=== PATIENT | male | born 1995 | race Caucasian/White ===

== ENCOUNTER 2021-02-15 05:34 | Emergency (ER) | payer OTHER ==
[~2021-02-15] VITALS: Ht 182.9 cm; Wt 113.4 kg
--- NOTE | ~2021-02-15 | EMS ---
[address] [address] EMS Patient Care Report Name: ANANDA WADE [id number]: 02/15/21 Attend Phys: Discharge: Date of : [birth year] Report #: [id number] THIS REPORT FOR: //name// Report Transmitted: 02/15/2021 07:03 EMS Care Summary [facility] [place] Incident [id number] @ 02/15/2021 04:55 [address]ident [address] [place] [id number] Patient Ananda Wade Male, 25 Years 1995 Patient Address [address] [place] [address] Patient Allergies No known allergies, Chief Complaint Ingestion Disposition Transported No Lights/[place] Dispatch Reason Overdose/Poisoning/Ingestion Transported To [facility] Narrative [facility] dispatched to the above location for overdose. Arrived on scene of a gas station. Patient is being escorted out of the store by [employer]. Patient is alert, confused and anxious. Patient is unable to state when or what he took. He repeatedly states he will not do it again and wants to see his sisters. After [employer] searched patient, retrieving a pocket knife, patient was walked to ambulance. Patient is extremely paranoid, hyperactive and it is difficult to redirect. He was unable to answer all A&O questions. He states repeatedly he wants help. He required multiple attempts to have him sit on cot and be secured via safety straps plus side rails. Initial vitals obtained. 4-lead obtained and [place] [address] [place] [address] EMS Patient Care Report Name: ANANDA WADE Room: [facility]#: [id number] Admission: 02/15/21 Attend Phys: Discharge: Date of : 89 Report #: [id number] 12-lead attempted. Due to patient's excessive movement, unable to obtain a clear tracing. Unable to obtain IV access or BGL due to patients inability to cooperate. During transport, patient showed signs of diaphoresis. He states he is scared, seeing and hearing things now. Patient was asked about multiple different drug possibilities and he continues to state he does not know what he took. He is also unable to state how he took the drugs. Unable to maintain monitoring equipment of patient due to movement and diaphoresis. Unable to obtain accurate repeat pressures due to patient continuous movement. Throughout transport, attempted to reassure and redirect patient without success. At destination, patient unloaded and taken to room 18. Patient was lowered and unsecured. He was able to self-transfer from cot to facility bed without incident. Report to physician and nurse. Signature obtained from RN. Patient's pocket knife give to security. Patient's ID to registration. Care transferred and call cleared. Initial Vitals @05:12SpO2: 100, @05:14 @05:16 @05:12P: 173,R: 22,BP: 104/76, @05:12GCS: 14, @05:01 Assessments @05:01MENTAL:SKIN:HEENT:LUNG SOUNDS:ABDOMEN:PELVIS//GI:EXTREMITIES:PULSE:NEURO: Impression Other psychoactive substance use, unspecified Procedures @05:14 12-Lead ECG Response: UnchangedSucceeded @05:16 12-Lead ECG Response: UnchangedSucceeded Timeline 04:55,Dispatch Notified 04:55,Psap Call 04:55,Dispatched 04:56,En Route 05:00,On Scene 05:01,At Patient 05:01,BP: / M,PULSE: ,RR: R,SPO2: Ox,ETCO2: ,BG: ,PAIN: ,GCS: , 05:12,BP: / M,PULSE: ,RR: R,SPO2: 100 Ox,ETCO2: ,BG: ,PAIN: ,GCS: , 05:12,BP: 104/76 M,PULSE: 173,RR: 22 R,SPO2: Ox,ETCO2: ,BG: ,PAIN: ,GCS: , 05:12,BP: / M,PULSE: ,RR: R,SPO2: Ox,ETCO2: ,BG: ,PAIN: ,GCS: 14, [place] [address] EMS Patient Care Report Name: ANANDA WADE Room: [facility]#: [id number] Admission: 02/15/21 Attend Phys: Discharge: Date of : 89 Report #: [id number] 05:14,12-Lead ECG,Response: UnchangedSucceeded, 05:14,BP: / M,PULSE: ,RR: R,SPO2: Ox,ETCO2: ,BG: ,PAIN: ,GCS: , 05:16,12-Lead ECG,Response: UnchangedSucceeded, 05:16,BP: / M,PULSE: ,RR: R,SPO2: Ox,ETCO2: ,BG: ,PAIN: ,GCS: , 05:18,Depart Scene 05:30,At Destination 05:45,Call Closed Disclaimer v1.1 Copyright 2020 [employer] This EMS Care Summary contains data elements from the applicable legal record (which may be displayed differently). It is designed to provide pertinent information for the following purposes: continuity of care, clinical quality, and state data reporting. The complete legal record is available to ED staff and administrators of the receiving hospital in ES's Patient Tracker. All data is provided "as is."
[~2021-02-15 05:34] MED LIST: ACIDOPHILUS LACT1 GM MC; BACTRIM 400-801 EACH; CEFDINIR300 MG PO; FLEXERIL PO; IBUPROFEN 800800 M1 PO; PERCOCET 5-3251 EACH PO; ZOFRAN ODT4 MG PO
[2021-02-15 05:56] LABS: ABSOLUTE BASOPHILS 0.1 thou/uL (0.0-0.2); ABSOLUTE EOSINOPHILS 0.1 thou/uL (0.0-0.7); ABSOLUTE LYMPHOCYTES 1.5 thou/uL (0.8-5.3); ABSOLUTE MONOCYTES 0.8 thou/uL (0.0-1.2); ABSOLUTE NEUTROPHILS 7.1 thou/uL (1.6-8.1); BASOPHILS 0.7 %; EOSINOPHILS 0.9 %; HEMATOCRIT 45.6 % (42.0-52.0); HEMOGLOBIN 15.5 gm/dL (14.0-18.0); LYMPHOCYTES 16.1 %; MCH 29.4 pg (26.0-34.0); MCHC 34.1 g/dL (28.0-37.0); MCV 86.4 fL (80.0-100.0); MONOCYTES 8.4 %; MPV 7.4 fl. (7.2-11.1); NUCLEATED RBCS 0 /100WBC; PLATELET COUNT* 336 thou/uL (150-400); POLYS 73.9 %; RBC 5.28 mil/uL (4.50-6.00); RDW-CV 13.8 % (10.5-14.5); WBC 9.6 thou/uL (4.0-11.0)
[2021-02-15 06:28] LABS: CALCIUM 9.3 mg/dL (8.5-10.1); CREATININE 1.1 mg/dL (0.6-1.3); POTASSIUM 3.3 mmol/L (3.5-5.1)
[2021-02-15 06:33] LABS: ALBUMIN 4.1 g/dL (3.4-5.0); TOTAL BILIRUBIN 0.8 mg/dL (<0.1-1.0); TOTAL PROTEIN 8.1 g/dL (6.4-8.2)
[2021-02-15 07:59] LABS: AMP/METHAMP POSITIVE (Negative); BARBITURATES Negative (Negative); BENZODIAZEPINES Negative (Negative); COCAINE Negative (Negative); METHADONE Negative (Negative); OPIATES Negative (Negative); PCP Negative (Negative); THC Negative (Negative)
[2021-02-15 11:20] VITALS: BP 156/72
== END 2021-02-15 11:21 | disposition home or self-care (01) ==
LOC: M.ERS 05:34
PROVIDERS: Emergency Medicine
DX: F15.10 Other stimulant abuse, uncomplicated (principal); F22 Delusional disorders; R00.0 Tachycardia, unspecified; Z90.89 Acquired absence of other organs